=== PATIENT | male | born 1990 | race Caucasian/White ===

== ENCOUNTER → 2020-11-25 15:38 | Outpatient (CLI) | payer OTHER, SELFPAY ==
[2020-11-27 08:48] LABS: Covid-19 Nasal PCR Sendout P&C NEGATIVE
== END ==
PROVIDERS: PCP Nurse Practitioner Family; Visit Provider Nurse Practitioner Family
DX: Z20.822 Contact with and (suspected) exposure to COVID-19 (principal)
CPT/HCPCS: U0004

== ENCOUNTER → 2021-01-28 14:00 | Outpatient (CLI) | payer OTHER, SELFPAY ==
--- NOTE | 2021-01-28 | XR_ITS ---
PROCEDURE: XR FOOT LT MIN 3V CLINICAL INDICATION: INURY OF LT FOOT Pain COMPARISON: No exams were available for comparison FINDINGS: No fracture or dislocation. No lytic or blastic change. There is normal mineralization. The joint spaces are well-preserved. No significant degenerative/arthritic changes. No erosive changes evident. Other findings:None. IMPRESSION: No acute findings. Dictated by: Fernando Landin MD 01/28/2021 18:38 Fernando Landin MD in [place] 01/28/2021 18:38
--- NOTE | 2021-01-28 | XR_ITS ---
PROCEDURE: XR ANKLE LT MIN 3V CLINICAL INDICATION: INJURY OF LT ANKLE COMPARISON: No exams were available for comparison FINDINGS: No fracture or dislocation. No lytic or blastic change. There is normal mineralization. The joint spaces are well-preserved. No significant degenerative/arthritic changes. No erosive changes evident. Other findings:None. IMPRESSION: No acute findings. Dictated by: Fernando Landin MD 01/28/2021 18:39 Fernando Landin MD in [facility] 01/28/2021 18:39
== END ==
PROVIDERS: PCP Nurse Practitioner Family; Visit Provider Nurse Practitioner Family
DX: S99.912A Unspecified injury of left ankle, initial encounter (principal)
CPT/HCPCS: 73610; 73630

== ENCOUNTER 2021-10-18 17:53 | Emergency (ER) | payer OTHER, SELFPAY ==
[2021-10-18] VITALS (7 sets, daily range): BP systolic 137–171; BP diastolic 94–117; PULSE 82–113; RESP 18–20; TEMP 36.6–36.8; O2SAT 95–98; BMI 28.3; BMI 29.1
--- NOTE | 2021-10-18 18:05 | PC.NURSE ---
PATIENT SENT TO ER PER Apolinar AMARO APRN FOR FURTHER EVALUATION. REPORT GIVEN TO Tao CARREON RN BY Apolinar AMARO APRN
[2021-10-18 18:41] LABS: POC Glucose,Bedside 112 (70-110)
--- NOTE | 2021-10-18 18:42 | CT_ITS ---
PROCEDURE INFORMATION: Exam: CT Head Without Contrast Exam date and time: 10/18/2021 6:42 PM Age: 30 years old Clinical indication: Other: Numbness left arm , headache; Additional info: Ongoing arm numbness, SWAIN, tingling tongue, confusi TECHNIQUE: Imaging protocol: Computed tomography of the head without contrast. Radiation optimization: All CT scans at this facility use at least one of these dose optimization techniques: automated exposure control; mA and/or kV adjustment per patient size (includes targeted exams where dose is matched to clinical indication); or iterative reconstruction. Other technique: STROKE PROTOCOL was implemented. COMPARISON: No relevant prior studies available. FINDINGS: Brain: There are small age indeterminate hypodensities involving the basal ganglia and left thalamus/internal capsule. No acute intracranial hemorrhage, midline shift or intracranial mass effect. Cerebral ventricles: No hydrocephalus. Paranasal sinuses: Polypoid mucosal disease involving the bilateral maxillary sinuses. Mastoid air cells: Visualized mastoid air cells are well aerated. Bones/joints: Unremarkable. No acute fracture. Soft tissues: Unremarkable. IMPRESSION: 1. There are small age indeterminate hypodensities involving the basal ganglia and left thalamus/internal capsule. MRI may be considered to assess for potential ischemic infarction. 2. Negative for acute intracranial hemorrhage. ASSESSMENT: ASPECTS (Tessy Stroke Program Early CT Score) is 10.
--- NOTE | 2021-10-18 18:44 | PC.NURSE ---
Pt to CT
[2021-10-18 18:46] LABS: Microscopic, Urine URINE MICROSCOPIC (MICROSCOPIC)
[2021-10-18 18:49] LABS: Chloride 97 mmol/L (98-107)
[2021-10-18 18:50] LABS: Potassium 4.1 mmoL/L (3.5-5.1); Sodium 137 mmol/L (136-145)
[2021-10-18 18:51] LABS: Basophils # 0.1 K/mm3 (0-0.2); Eosinophils # 0.1 K/mm3 (0.0-0.4); Eosinophils % 1.1 % (0.1-12.0); Neutrophils # 3.5 K/mm3 (1.8-7.8)
[2021-10-18 18:52] LABS: Alanine Aminotransferase 40 U/L (12-78); Alkaline Phosphatase 65 U/L (38-126); Aspartate Amino Transferase 39 U/L (17-59); Bilirubin,Total 0.3 mg/dl (0.2-1.3); Blood Urea Nitrogen 22 mg/dl (9-20); Creatinine Clearance Estimated 93 mL/min (50-200); Estimated Glomerular Filt Rate 55 ml/min (>60); GFR (African American) 66 ML/MIN (>60)
[2021-10-18 18:53] LABS: Albumin/Globulin Ratio 1.6 (1.1-1.8); Anion Gap 18.1 mEq/L (5-15); Calcium 9.7 mg/dl (8.4-10.2); Carbon Dioxide 26 mmol/L (22.0-30.0); Globulin 3.1 g/dL (1.3-3.2); Glucose 112 mg/dl (74-100); Total Protein,Serum 8.1 g/dl (6.3-8.2)
--- NOTE | 2021-10-18 18:55 | PC.NURSE ---
Pt returned from rad
[2021-10-18 19:00] LABS: Appearance,Urine CLEAR (Clear); Bilirubin,Urine Negative (Negative); Blood, Urine Negative (Negative); Color,Urine YELLOW (Yellow); Glucose,Urine (UA) Negative (Negative); Ketones,Urine Negative (Negative); Leukocyte Esterase,Urine Negative (Negative); Nitrate,Urine Negative (Negative); PH,Urine 5.5 (5.0-8.5); Protein,Urine Negative (Negative); Specific Gravity, Urine >= 1.030 (1.005-1.030); Urobilinogen,Urine 0.2 EU/dl (0.2)
[2021-10-18 19:01] LABS: Basophils % 1.9 % (0.1-2.0); Hematocrit 55.6 % (42.0-52.0); Lymphocytes # 1.9 K/mm3 (0.7-4.5); Lymphocytes % 31.1 % (10-50); Mean Corpuscular HGB Conc 34.9 g/dL (31.8-35.4); Mean Corpuscular Hemoglobin 29.3 pg (27.0-31.2); Mean Corpuscular Volume 83.9 fl (80-94); Monocytes # 0.6 K/mm3 (0.1-1.0); Monocytes % 9.4 % (1.7-9.3); Neutrophils % 56.5 % (37.0-80.0); Platelet Count 280 K/mm3 (142-424); Red Blood Count 6.62 M/mm3 (4.60-6.20); Red Cell Distribution Width 12.5 % (11.5-17.5); White Blood Count 6.2 K/mm3 (4.8-10.8)
[2021-10-18 19:04] LABS: Hemoglobin 19.4 g/dL (14.1-18.0)
--- NOTE | 2021-10-18 19:04 | HMH.EDGENADL ---
ED Disposition Condition on Discharge: Fair - Critical Care Critical Care Time: No <IngeJhonny faustin - Last Filed: 10/18/21 20:36> <Kurt Winston - Last Filed: 10/18/21 21:03> Clinical Impression: Stroke Qualifiers: CVA mechanism: unspecified Qualified Code(s): I63.9 - Cerebral infarction, unspecified Disposition: Home, Self-Care Instructions: DI for Stroke-Ischemic Additional Instructions: see pcp and neuro for follow up alma Prescriptions: Aspirin [Aspirin EC 325mg Tab] 325 mg PO DAILY #30 tab Transmission Status: Pending to [facility] Atorvastatin Calcium [Lipitor 10mg Tab] 10 mg PO HS #30 tab Transmission Status: Pending to [facility] Referrals: Tova Carrero MD [Primary Care Provider] - Jordyn Valerio MD [Staff Physician] - Attestation: On 10/18/21, the high probability of a clinically significant, sudden or life threatening deterioration of the following system(s) required my full and direct attention, intervention and personal management. The time I documented below is in addition to time spent performing reported procedures but includes the following listed in this critical care notation. Medical Decision Making - Keyur Inquiry Pt receiving controlled substance: No - Lab Data Result diagrams: 10/18/21 18:35 10/18/21 18:35 - CT Data CT Scan: Head Time Received: 19:[address] Reviewed: Yes: I have viewed the radiologist's interpretation - Physician Consults Physician Consulted: Lesley Selby stroke Time: 19:30 Reason -: Neurological Eval/Care Comment/Response: Cannot accept patient for transfer as he does not require acute intervention. Recommends usual diagnostic work-up including echocardiogram with bubble, CT angiogram, MRI, starting on statin and low-dose aspirin. Doubts that polycythemia is related to the stroke. Additional Consult: Estuardo Tanner Time: 19:40 Reason -: Neurological Eval/Care Comment/Response: Accepts patient for transfer. <CeciliaJhonny - Last Filed: 10/18/21 20:36> - Lab Data Lab results reviewed: Yes: I reviewed the patient's lab results. Result diagrams: 10/18/21 18:35 10/18/21 18:35 - CT Data CT Scan: Other (cta head/neck - ok ) Time Received: 21:03 <Kurt Winston S - Last Filed: 10/18/21 21:03> Vital Signs: 10/18/21 18:00 10/18/21 18:45 10/18/21 18:58 Temperature 97.8 F 98.2 F Temperature Source Oral Oral Pulse Rate 98 H Pulse Rate [Right Brachial] 102 H 113 H Respiratory Rate 19 20 Blood Pressure 141/99 H Blood Pressure [Right Arm] 171/98 H 137/117 H Blood Pressure Mean Blood Pressure Mean [Right Arm] 122 123 Blood Pressure Source [Right Arm] Automatic Cuff Automatic Cuff Blood Pressure Position [Right Arm] Sitting Sitting 02 Sat by Pulse Oximetry 97 95 97 Oxygen Delivery Method Room Air Room Air 10/18/21 19:30 10/18/21 20:00 10/18/21 20:30 Temperature Temperature Source Pulse Rate 98 H 101 H 100 H Pulse Rate [Right Brachial] Respiratory Rate Blood Pressure 138/94 H 150/109 H 162/113 H Blood Pressure [Right Arm] Blood Pressure Mean 122 121 Blood Pressure Mean [Right Arm] Blood Pressure Source [Right Arm] Blood Pressure Position [Right Arm] 02 Sat by Pulse Oximetry 96 96 97 Oxygen Delivery Method - Lab Data Lab Results 10/18/21 18:34: POC Glucose 112 H 10/18/21 18:35: WBC 6.2, RBC 6.62 H, Hgb 19.4 H, Hct 55.6 H, MCV 83.9, MCH 29.3, MCHC 34.9, RDW 12.5, Plt Count 280, MPV 7.0 L, Neut % (Auto) 56.5, Lymph % (Auto) 31.1, [place] % (Auto) 9.4 H, Eos % (Auto) 1.1, Baso % (Auto) 1.9, Neut # (Auto) 3.5, Lymph # (Auto) 1.9, [place] # (Auto) 0.6, Eos # (Auto) 0.1, Baso # (Auto) 0.1 10/18/21 18:35: Sodium 137, Potassium 4.1, Chloride 97 L, Carbon Dioxide 26, Anion Gap 18.1 H, BUN 22 H, Creatinine 1.50 H, Estimated Creat Clear 93, Estimated GFR 55 L, Est GFR ( Amer) 66, Glucose 112 H, Calcium 9.7, Total Bilirubin 0.3, AST 39, ALT 40, Alkaline Phosphatase 65, Tot
[2021-10-18 19:18] LABS: RBC,Urine Occasional #/hpf (0-3)
[2021-10-18 19:19] LABS: Bacteria,Urine 1+ /lpf
--- NOTE | 2021-10-18 19:20 | PC.NURSE ---
calling [facility] at this time.
--- NOTE | 2021-10-18 19:23 | PC.NURSE ---
Called Rad for disc
--- NOTE | 2021-10-18 19:25 | PC.NURSE ---
Dr Brooks speaking with [facility]
--- NOTE | 2021-10-18 19:30 | PC.NURSE ---
speaking with Dr Sutton with 's
--- NOTE | 2021-10-18 19:33 | PC.NURSE ---
calling [facility] at this time.
--- NOTE | 2021-10-18 19:38 | PC.NURSE ---
[facility] to return call.
--- NOTE | 2021-10-18 19:45 | PC.NURSE ---
Dr. Brooks s/w Neuro Dr. Maret
--- NOTE | 2021-10-18 19:50 | PC.NURSE ---
Hospitalist Dr. Bass calling for Dr. Brooks, pt at this time is stating he refuses transfer and hospital admission. [facility] updated on this change. They stated to call back with any changes. MD still would like ASA 324mg PO and new order for CT head and neck angio.
--- NOTE | 2021-10-18 19:53 | CT_ITS ---
PROCEDURE INFORMATION: Exam: CT Angiography Head With Contrast, Arteriography Exam date and time: 10/18/2021 7:53 PM Age: 30 years old Clinical indication: Other: Left arm numbness, headache, confusion; Additional info: Strokes TECHNIQUE: Imaging protocol: Computed tomography angiography of the head with contrast. Exam focused on the arteries. 3D rendering (Not supervised by radiologist): MIP and/or 3D reconstructed images were created by the technologist. Radiation optimization: All CT scans at this facility use at least one of these dose optimization techniques: automated exposure control; mA and/or kV adjustment per patient size (includes targeted exams where dose is matched to clinical indication); or iterative reconstruction. Contrast material: ISOVUE 370; Contrast volume: 100 ml; Contrast route: INTRAVENOUS (IV); COMPARISON: CT HEAD/BRAIN WO CON 10/18/2021 6:45 PM FINDINGS: ANTERIOR CIRCULATION: Right internal carotid artery: Unremarkable. Intracranial segment is patent with no significant stenosis. No aneurysm. Right middle cerebral artery: Unremarkable. No occlusion or significant stenosis. No aneurysm. Right anterior cerebral artery: Unremarkable. No occlusion or significant stenosis. No aneurysm. Left internal carotid artery: Unremarkable. Intracranial segment is patent with no significant stenosis. No aneurysm. Left middle cerebral artery: Unremarkable. No occlusion or significant stenosis. No aneurysm. Left anterior cerebral artery: Hypoplastic left A1 segment. POSTERIOR CIRCULATION: Right vertebral artery: Right vertebral artery is dominant. Left vertebral artery: Unremarkable. No occlusion or significant stenosis. No aneurysm. Basilar artery: Unremarkable. No occlusion or significant stenosis. No aneurysm. Right posterior cerebral artery: Unremarkable. No occlusion or significant stenosis. No aneurysm. Left posterior cerebral artery: Unremarkable. No occlusion or significant stenosis. No aneurysm. IMPRESSION: No hemodynamically significant stenosis or large vessel occlusion.
--- NOTE | 2021-10-18 19:53 | CT_ITS ---
PROCEDURE INFORMATION: Exam: CT Angiography Neck With Contrast Exam date and time: 10/18/2021 7:53 PM Age: 30 years old Clinical indication: Other: Left arm weakness, headache, confusion; Additional info: Strokes TECHNIQUE: Imaging protocol: Computed tomography angiography of the neck with contrast. 3D rendering (Not supervised by radiologist): MIP and/or 3D reconstructed images were created by the technologist. Radiation optimization: All CT scans at this facility use at least one of these dose optimization techniques: automated exposure control; mA and/or kV adjustment per patient size (includes targeted exams where dose is matched to clinical indication); or iterative reconstruction. Contrast material: ISOVUE 370; Contrast volume: 100 ml; Contrast route: INTRAVENOUS (IV); COMPARISON: CT HEAD/BRAIN WO CON 10/18/2021 6:45 PM FINDINGS: Right common carotid artery: No stenosis. No dissection or occlusion. Right internal carotid artery: No stenosis of the extracranial segment. No dissection or occlusion. Right external carotid artery: No occlusion or stenosis of the origin. Left common carotid artery: No stenosis. No dissection or occlusion. Left internal carotid artery: No stenosis of the extracranial segment. No dissection or occlusion. Left external carotid artery: No occlusion or stenosis of the origin. Right vertebral artery: Right vertebral artery is dominant. Mild right vertebral artery calcification without significant stenosis. Left vertebral artery: No stenosis. No dissection or occlusion. Soft tissues: Normal. No significant soft tissue swelling. Bones/joints: No acute fracture. IMPRESSION: No hemodynamically significant stenosis or dissection. REFERENCES: NASCET CRITERIA. The degree of internal carotid artery stenosis is based on NASCET criteria. Normal is no stenosis. Mild is less than 50% stenosis. Moderate is 50-69% stenosis. Severe is 70% to 99% stenosis. Total occlusion is no detectable patent lumen.
--- NOTE | 2021-10-18 20:12 | PC.NURSE ---
Pt to CT
== END 2021-10-18 21:43 | disposition home or self-care (01) ==
LOC: UTC 17:55 → ER 18:29
PROVIDERS: Nurse Practitioner Family; Emergency Provider Emergency Medicine; PCP Family Medicine
DX: I63.9 Cerebral infarction, unspecified (principal); R20.2 Paresthesia of skin; I10 Essential (primary) hypertension
CPT/HCPCS: 70450; 70496; 70498; 80053; 81001; 82962; 85025; 99283; Q9967

== ENCOUNTER 2024-10-19 10:26 | Emergency (ER) | payer OTHER, SELFPAY ==
[2024-10-19 10:45] VITALS: BP 172/114; PULSE 120; RESP 20; TEMP 37.1; O2SAT 96; BMI 29.9
--- NOTE | 2024-10-19 11:01 | ED_ITS ---
Discharge Plan Disposition Patient Disposition: Home, Self-Care Condition: Good Prescriptions Prescriptions: New ondansetron 4 mg tablet,disintegrating 4 mg PO Q8H PRN (Reason: nausea and vomiting) Qty: 15 0RF No Action aspirin 325 MG tablet 325 mg PO DAILY Qty: 30 0RF amlodipine 5 mg tablet 5 mg PO DAILY atorvastatin 10 mg tablet 10 mg PO HS Rx Instructions: TAKE ONE TABLET BY MOUTH AT BEDTIME patient needs to make an appt before anymore refills lisinopril-hydrochlorothiazide 20-12.5 mg tablet 1 tab PO DAILY Rx Instructions: TAKE 1 TABLET BY MOUTH EACH MORNING Referrals Follow up/Referrals: Tova Carrero MD [Primary Care Provider] - See instructions Activity Restrictions/Add. Instructions Additional Instructions/Restrictions: Drink extra fluids with and between meals. If you have difficulty drinking, try very small amounts of water or suck on ice chips. ? Avoid fruit juices, as these do not replace minerals and can actually increase diarrhea. ? Children and adults can use sports drinks to replenish electrolytes. Younger children and infants should use products formulated for children, like oral rehydration solutions. ? Eat food in small amounts and let your stomach recover. ? Get lots of rest. You may feel tired or weak. ? No greasy or fried foods for the next 24-48 hours BRAT diet Bananas Rice Apples and [place] ? Make sure to drink plenty of liquids ? Return if needed ? Straight to ER if any life threatening symptoms ? Zofran as prescribed ? You was given an outpatient order for diarrhea panel, please collect specimen and bring back to outpatient lab then call back to the [facility] or follow up with family doctor for results ? Follow up with family doctor in the next 48-72 hours if no improvement or any worsening of symptoms Clinical Impressions Clinical Impression: Nausea vomiting and diarrhea Stand Alone Forms Stand Alone Forms: Work/School Release Instructions Patient Instructions: Diarrhea, Nausea and Vomiting-Adult Print Language Print Language: Tuvaluan Discharge ED Provider: Ghada Cullen [facility] [place] HPI General Stated complaint: vomiting, diarrhea Mode of Arrival: Ambulatory Source of Information: Patient Limitations: No Limitations Time Seen by Provider: 10/19/24 11:01 Description of Symptoms (Recalled from Triage Doc. by RN): PATIENT C/O VOMITING, DIARRHEA, HEADACHE AND FEVER THAT STARTED LAST NIGHT HEENT Symptoms (Recalled from RN notes): No Resp Symptoms (Recalled from RN notes): No Skin Symptoms (Recalled from RN notes): No MS Symptoms (Recalled from RN notes): No Functional Status (Recalled from RN notes): WNL History of Present Illness Provider Complaint: Patient states that he started yesterday with N/V/D States that he has had it all night States that he felt a little feverish earlier States that one of his coworkers had a stomach bug a few weeks ago and this morning he was still having N/V so he came in to get checked States didnt take his morning meds yet wanting to get something for the N/V first so he could keep them down Related Data Home Medications ?Medication ?Instructions ?Recorded ?Confirmed amlodipine 5 mg tablet 5 mg PO DAILY 10/19/24 10/19/24 atorvastatin 10 mg tablet 10 mg PO HS 10/19/24 10/19/24 lisinopril 20 1 tab PO DAILY 10/19/24 10/19/24 mg-hydrochlorothiazide 12.5 mg tablet Previous Rx's ?Medication ?Instructions ?Recorded aspirin 325 mg tablet,delayed 325 mg PO DAILY #30 tabs 10/18/21 release ondansetron 4 mg disintegrating 4 mg PO Q8H PRN nausea and 10/19/24 tablet vomiting #15 tabs Allergies Allergy/AdvReac Type Severity Reaction Status Date / Time No Known Allergies Allergy Verified 10/18/21 18:30 Worker's Comp Is this a Worker's Comp case?: No [facility] Disclaimer: The information contained in this section may have been updated after the patient was seen, as this information can be updated by other users. Medical History (Updated 10/19/24 @ 11:25 by Ghada Cullen APRN) History of stroke Asthma Hyperlipidemia Hypertension Social History Smoking Status: Never smoker alcohol intake: current alcohol intake frequency: a few times a week substance use type: marijuana current occupational status: employed Travel in the last 8 weeks: None ROS Obtained: Yes All systems reviewed & no additional complaints except as documented and Yes Systems reviewed as appropriate & no additional complaints except as documented Constitutional Constitutional: Reports system reviewed and no additional complaints, except as documented, Reports as per HPI and Reports fever(s) ENT Ears, Nose, Mouth, and Throat: Reports system reviewed and no additional complaints, except as documented and Reports as per HPI Cardiovascular Cardiovascular: Reports system reviewed and no additional complaints, except as documented and Reports as per HPI Respiratory Respiratory: Reports system reviewed and no additional complaints, except as documented and Reports as per HPI Gastrointestinal Gastrointestingal: Reports system reviewed and no additional complaints, except as documented, as per HPI, diarrhea, nausea and vomiting; Denies abdominal pain or cramping Genitourinary Male Genitourinary: Reports system reviewed and no additional complaints, except as documented and Reports as per HPI Musculoskeletal Musculoskeletal: Reports system reviewed and no additional complaints, except as documented and Reports as per HPI Physical Exam General General appearance: alert and in no apparent distress ENT ENT exam: Present mucous membranes moist Chest Chest inspection: Present normal inspection and symmetric chest wall rise Respiratory Respiratory exam: Present normal lung sounds bilaterally; Absent respiratory distress or wheezes Cardiovascular Cardiovascular exam: Present regular rate, normal rhythm and tachycardia Abdominal Exam Abdominal exam: Present soft and normal bowel sounds; Absent distention, tenderness, guarding or rebound Neurological Exam Neurological exam: Present alert, oriented X3 and normal gait Medical Decision Making Medical Records Screening: Per USPSTF and CDC recommendations, given the prevalence of disease in our region, it is our hospital?s policy to screen for HIV and viral Hepatitis for all patients aged 18 and over and those with ongoing risk factors. Keyur Inquiry Pt receiving controlled substance: No Keyur was queried for this patient: No Vital Signs: 10/19/24 10:45 Temperature 98.8 F Temperature Source Oral Pulse Rate [Left Brachial] 120 H Respiratory Rate 20 Blood Pressure [Left Arm] 172/114 H Blood Pressure Mean [Left Arm] 133 Blood Pressure Source [Left Arm] Automatic Cuff Blood Pressure Position [Left Arm] Sitting 02 Sat by Pulse Oximetry 96 Oxygen Delivery Method Room Air Lab Data Lab results reviewed: Yes I reviewed the patient's lab results.
[2024-10-19 11:03] LABS: UTC Influenza A Antigen Negative (Negative)
[2024-10-19 11:04] LABS: UTC Influenza B Antigen Negative (Negative)
[2024-10-19] MEDS: 0.9 % SODIUM CHLORIDE 1000ML 1,000 ML 999 ML IV (11:27)
[2024-10-19] MEDS: ONDANSETRON 4MG/2ML VIAL 4 MG IV (11:30)
--- NOTE | 2024-10-19 12:04 | PC.NURSE ---
PATIENT STATES NAUSEA IS BETTER AFTER MEDICATION. PATIENT GIVEN WATER AND GATORADE AT THIS TIME
[2024-10-19 12:31] VITALS: BP 172/114; PULSE 117; RESP 20; TEMP 37.1; O2SAT 96
== END 2024-10-19 12:37 | disposition home or self-care (01) ==
PROVIDERS: Emergency Provider Nurse Practitioner; PCP Family Medicine
DX: R11.2 Nausea with vomiting, unspecified (principal); R19.7 Diarrhea, unspecified; R51.9 Headache, unspecified; R50.9 Fever, unspecified
CPT/HCPCS: 87804; 96361; 96374; 99212; G0381; J2405; J7030